=== PATIENT | male | born 1965 | race Caucasian/White ===

== ENCOUNTER 2020-11-03 06:50 | Day surgery (SDC) | payer BC ==
[~2020-11-03 06:50] MED LIST: Lactated Ringers 1,000 ML IV SCH; Sodium Chloride 0.9% 10 ML Syringe FLUSH PRN
[2020-11-03] MEDS ORDERED: Propofol 200 MG/20 ML SDV IV ONE (06:51)
--- NOTE | 2020-11-03 08:13 | PCM.OPNOTE ---
- General Post-Op/Procedure Note Date of Surgery/Procedure: 11/03/20 Operative Procedure(s): c scope Findings: nl exam Pre Op Diagnosis: colon cancer screening Post-Op Diagnosis: Same. Nl exam Anesthesia Technique: MAC Primary Surgeon: Giorgi Bernal Anesthesia Provider: Matthew Hurd Pathology: none Complications: None Condition: Good Free Text/Narrative:: see dictation
--- NOTE | 2020-11-03 08:46 | OR ---
DATE OF OPERATION: 11/03/2020 SURGEON: Giorgi Bernal MD PROCEDURE PERFORMED: Colonoscopy. PREOPERATIVE DIAGNOSIS: Need for screening C-scope. POSTOPERATIVE DIAGNOSIS: Normal exam. INDICATIONS FOR PROCEDURE: This is a 55-year-old white male who presents for routine screening C-scope. He is without complaints. DESCRIPTION OF OPERATION: After an excellent IV sedation was administered, digital rectal exam was performed. No marked abnormality was noted. The flexible colonoscope was inserted and advanced to the cecum. Prep was excellent. The following findings were noted. Ascending colon, unremarkable. Transverse colon, unremarkable. Descending colon, unremarkable. Sigmoid and rectum, unremarkable. Colon was deflated. Scope was removed. The patient tolerated the procedure well. RECOMMENDATIONS: Repeat colonoscopy in 10 years, sooner on a p.r.n. basis. /[id number] /MODL
== END 2020-11-03 08:58 | disposition home or self-care (01) ==
LOC: FB.SDS 06:50
PROVIDERS: ATTEND Surgery
DX: Z12.11 Encounter for screening for malignant neoplasm of colon (principal); E89.0 Postprocedural hypothyroidism; F17.210 Nicotine dependence, cigarettes, uncomplicated; Z79.899 Other long term (current) drug therapy; Z98.890 Other specified postprocedural states
CPT/HCPCS: 00812-QZ; J2704; J7120

== ENCOUNTER 2024-04-22 05:24 | Emergency (ER) | payer BC ==
[2024-04-22] MEDS: EPINEPHrine 1 MG/1 ML Amp IVPUSH ONE ×7 (05:24→05:46)
[2024-04-22] MEDS: Sodium Chloride 0.9% 1,000 ML IV ONE ×2 (05:24→05:36)
[2024-04-22] MEDS: Sodium Bicarbonate 8.4% 50 MEQ/50 ML Syringe IVPUSH ONE ×2 (05:24→05:25)
[2024-04-22] MEDS: Amiodarone 150 MG/3 ML SDV IVPUSH ONE (05:27)
[2024-04-22 05:48] LABS: BASOPHILS PERCENT AUTO 0.4 % (0.3-3.8); EOSINOPHILS ABSOLUTE AUTO 0.2 x10-3/uL (0.0-0.6); EOSINOPHILS PERCENT AUTO 1.2 % (0.1-6.8); HEMATOCRIT 44.2 % (38.3-50.1); HEMOGLOBIN 13.3 g/dL (12.9-17.7); LYMPHOCYTES ABSOLUTE AUTO 4.6 x10-3/uL (0.5-4.5); LYMPHOCYTES PERCENT AUTO 34.7 % (15.8-45.3); MEAN CORPUSCULAR HEMOGLOBIN 31.4 pg (27.0-33.3); MEAN CORPUSCULAR VOLUME 104.8 fL (80.8-98.7); MEAN PLATELET VOLUME 8.9 fL (6.7-11.0); MONOCYTES ABSOLUTE AUTO 0.5 x10-3/uL (0.0-1.2); NEUTROPHILS ABSOLUTE AUTO 7.9 x10-3/uL (1.7-6.9); NEUTROPHILS PERCENT AUTO 59.7 % (40.3-71.8); PLATELET COUNT,PLT 225 x10(3)uL (117-477); RED CELL DISTRIBUTION WIDTH 15.8 % (12.4-15.0); WHITE BLOOD CELL COUNT,WBC 13.2 x10-3/uL (3.2-10.1)
[2024-04-22 05:59] LABS: RED BLOOD CELL COUNT 4.22 x10(6)uL (3.90-5.90)
[2024-04-22 06:00] LABS: A/G RATIO 0.8; ALBUMIN 2.7 g/dL (3.2-4.6); ALKALINE PHOSPHATASE 92 IU/L (56-112); BILIRUBIN TOTAL 0.1 mg/dL (0.1-1.3); BLOOD UREA NITROGEN,BUN 22 mg/dL (7-18); BUN/CREATININE RATIO 10.5 (9-20); CALCIUM 8.7 mg/dL (8.6-10.2); CARBON DIOXIDE,CO2 22 mmol/L (21-32); CHLORIDE,CL 104 mmol/L (100-110); ESTIMATED GFR 35 mL/min (>60); MAGNESIUM 2.9 mg/dL (1.8-2.5); PROTEIN TOTAL,TP 5.9 g/dL (6.0-8.0); SODIUM,NA 148 mmol/L (135-145)
[2024-04-22 06:04] LABS: ALANINE AMINOTRANSFERASE,ALT 225 U/L (12-36); ASPARTATE AMNIOTRANSFERASE,AST 239 IU/L (5-25); CREATININE 2.1 mg/dL (0.70-1.30); GLUCOSE RANDOM 469 mg/dL (80-116)
[2024-04-22] MEDS ORDERED: EPINEPHrine 1:10,000 1 MG/10 ML Syringe IV ONE ×7 (07:38→07:42)
== END 2024-04-22 05:49 | disposition expired ==
LOC: FB.ED 05:24
DX: I46.9 Cardiac arrest, cause unspecified (principal); E03.9 Hypothyroidism, unspecified; Z79.890 Hormone replacement therapy
CPT/HCPCS: 31500; 36410; 36415; 80053; 83735; 84484; 85025; 92950; 96374; 96375; 99285; 99285-25; J0171; J0282; J7030